=== PATIENT | female | born 1975 | race Caucasian/White ===

== ENCOUNTER 2017-10-12 13:00 | Emergency (ER) | payer OTHER, MEDICAID ==
[2017-10-12] MEDS: DIAZEPAM 5 MG TAB PO (14:43)
[2017-10-12] MEDS: KETOROLAC 60 MG INJ IM (14:43)
== END 2017-10-12 16:35 | disposition home or self-care (01) ==
LOC: FTE 13:00
DX: M54.41 Lumbago with sciatica, right side (principal)
CPT/HCPCS: 81025; 96372; 99284-25